=== PATIENT | male | born 1960 | race African-American/Black ===

== ENCOUNTER 2018-08-13 02:20 | Emergency (ER) | payer MEDICAID ==
[~2018-08-13] VITALS: Ht 172.7 cm; Wt 84.0 kg
[~2018-08-13 02:20] MED LIST: OXYCODONE
[2018-08-13 02:22] VITALS: BP 122/97
== END 2018-08-13 09:18 | disposition left against medical advice (07) ==
LOC: ER 02:20
DX: Z53.21 Procedure and treatment not carried out due to patient leaving prior to being seen by health care provider (principal)

== ENCOUNTER 2018-12-11 01:39 | Inpatient (IN) | payer MEDICAID, OTHER ==
[~2018-12-11] VITALS: Ht 175.3 cm; Wt 81.6 kg
[2018-12-11] MEDS ORDERED: ASPIRIN 81MG TABLET PO ONE (02:15)
[2018-12-11 03:18] LABS: BASOPHILS % 0.4 % (0.0-2.0); EOSINOPHILS % 0.3 % (0.0-5.0); HEMATOCRIT. 45.9 % (42.0-52.0); HEMOGLOBIN. 15.7 g/dL (14.0-18.0); LYMPHOCYTES % 21.3 % (20.0-50.0); MEAN CORPUSCULAR HEMOGLOBIN 30.6 pg (28.0-32.0); MEAN CORPUSCULAR VOLUME 89.6 fL (80.0-94.0); MEAN PLATELET VOLUME 8.8 fl (7.4-10.4); MONOCYTES % 11.1 % (2.0-8.0); NEUTROPHILS % 66.9 % (40.0-76.0); PLATELET 176 x1000/uL (130-400); RED BLOOD CELL COUNT 5.12 mill/uL (4.7-6.1); RED CELL DISTRIBUTION WIDTH 14.5 % (11.6-14.6)
[2018-12-11 03:55] LABS: CHLORIDE 102 mEq/L (98-107)
[2018-12-11 03:59] LABS: ETHANOL BLOOD < 10 mg/dL
[2018-12-11] MEDS ORDERED: ONDANSETRON HCL 4MG/2ML INJ IV ONE (04:00)
[2018-12-11] MEDS: DEXT 5%/0.45% NACL 1000ML 1,000 ML IV SCH ×3 (07:54→21:47)
[2018-12-11] MEDS ORDERED: ACETAMINOPHEN 650MG SUPP PR PRN (08:00)
[2018-12-11] MEDS ORDERED: DIPHENHYDRAMINE 50MG/ML VIAL IV PRN (08:00)
[2018-12-11] MEDS ORDERED: LORAZEPAM 2MG/ML CPJ IV PRN (08:00)
[2018-12-11] MEDS ORDERED: ONDANSETRON HCL 4MG/2ML INJ IV PRN (08:00)
[2018-12-11] MEDS ORDERED: IPRATROPIUM/ALBUTEROL 0.5-3(2.5)MG/3ML NEB HHN PRN (08:00)
[2018-12-11] MEDS ORDERED: NITROGLYCERIN 0.4MG TABLET SL SL PRN (09:00)
[2018-12-11 09:31] VITALS: BP 129/84
[2018-12-11] MEDS ORDERED: AMLO2.5T45 MT (09:45)
[2018-12-11] MEDS ORDERED: LOSA25TA26 MT (09:45)
[2018-12-11] MEDS ORDERED: BICT1TAB PO (09:45)
[2018-12-11] MEDS ORDERED: ATEN100T PO (09:45)
[2018-12-11] MEDS: PANTOPRAZOLE SODIUM 40 MG/VIAL IV SCH (10:06)
[2018-12-11] MEDS: ENOXAPARIN 30MG/0.3ML SYR SUBCUT SCH (10:07)
[2018-12-11 12:00] VITALS: BP 122/89
[2018-12-11 16:00] VITALS: BP 106/72
[2018-12-11] MEDS ORDERED: HYDRALAZINE 20MG/ML VIAL IV PRN (16:15)
[2018-12-11] MEDS ORDERED: HYDRALAZINE 10 MG in SODIUM CHLORIDE 0.9% 49.5 ML IV PRN (16:15)
[2018-12-11 16:59] LABS: CLARITY URINE CLOUDY (CLEAR); COLOR URINE DARK YELLOW (YELLOW); KETONES URINE TRACE (NEGATIVE); LEUKOCYTE ESTERASE URINE NEGATIVE (NEGATIVE); NITRITE URINE NEGATIVE (NEGATIVE); OCCULT BLOOD URINE 2+ (NEGATIVE); PROTEIN URINE 2+ (NEGATIVE); SPECIFIC GRAVITY URINE 1.024 (1.005-1.030)
[2018-12-11 17:15] LABS: *COCAINE SCREEN URINE NEGATIVE (NEGATIVE); CANNABINOID URINE SCREEN NEGATIVE (NEGATIVE); METHADONE URINE SCREEN NEGATIVE (NEGATIVE); OPIATES URINE SCREEN NEGATIVE (NEGATIVE); PHENCYCLIDINE URINE SCREEN NEGATIVE (NEGATIVE)
[2018-12-11 17:16] LABS: *AMPHETAMINES SCREEN URINE NEGATIVE (NEGATIVE); *BARBITURATES SCREEN URINE NEGATIVE (NEGATIVE); *BENZODIAZEPINES SCREEN URINE NEGATIVE (NEGATIVE)
[2018-12-11 20:00] VITALS: BP 122/88
[2018-12-12] VITALS: BP 133/92
[2018-12-12 04:00] VITALS: BP_SYST 98; BP_DIAS 52; BP_DIAS 72
[2018-12-12] MEDS ORDERED: LIDOCAINE 5% PATCH TOP PRN (07:00)
[2018-12-12 08:00] VITALS: BP 127/88
[2018-12-12] MEDS: DEXT 5%/0.45% NACL 1000ML 1,000 ML IV SCH ×2 (08:30→17:31)
[2018-12-12] MEDS: ENOXAPARIN 30MG/0.3ML SYR SUBCUT SCH (08:30)
[2018-12-12] MEDS: PANTOPRAZOLE SODIUM 40 MG/VIAL IV SCH (08:30)
[2018-12-12 12:00] VITALS: BP 136/86
[2018-12-12] MEDS: KETOROLAC 30MG/ML VIAL IV PRN ×2 (12:02→18:18)
[2018-12-12 12:43] LABS: CHLORIDE 108 mEq/L (98-107)
[2018-12-12 16:00] VITALS: BP 124/89
[2018-12-12 16:42] LABS: BASOPHILS % 0.3 % (0.0-2.0); EOSINOPHILS % 0.8 % (0.0-5.0); HEMATOCRIT. 46.6 % (42.0-52.0); HEMOGLOBIN. 15.7 g/dL (14.0-18.0); LYMPHOCYTES % 36.6 % (20.0-50.0); MEAN CORPUSCULAR HEMOGLOBIN 30.7 pg (28.0-32.0); MEAN PLATELET VOLUME 9.2 fl (7.4-10.4); MONOCYTES % 12.1 % (2.0-8.0); NEUTROPHILS % 50.2 % (40.0-76.0); PLATELET 159 x1000/uL (130-400); RED BLOOD CELL COUNT 5.12 mill/uL (4.7-6.1); RED CELL DISTRIBUTION WIDTH 14.7 % (11.6-14.6)
[2018-12-12 20:00] VITALS: BP 118/85
[2018-12-12] MEDS ORDERED: KETOROLAC 15MG/ML VIAL IV PRN (21:30)
[2018-12-12] MEDS ORDERED: ACETAMINOPHEN 325MG TABLET PO PRN (22:30)
[2018-12-13] VITALS: BP 126/88
[2018-12-13 04:00] VITALS: BP 101/84
[2018-12-13 08:00] VITALS: BP 133/75
[2018-12-13] MEDS: DEXT 5%/0.45% NACL 1000ML 1,000 ML IV SCH (08:10)
[2018-12-13] MEDS ORDERED: FAMOTIDINE 20MG/2ML VIAL IV SCH (09:00)
[2018-12-13] MEDS ORDERED: ENOXAPARIN 40MG/0.4ML SYR SUBCUT SCH (09:00)
[2018-12-13 12:00] VITALS: BP 132/89
[2018-12-13 14:49] VITALS: BP 132/89
== END 2018-12-13 15:10 | disposition home or self-care (01) | DRG 247 ==
LOC: ER 01:39 → 6EST 04:44 → EDBEDREQ 04:48 → EDBEDREQTM 04:48 → ENRESERV 07:16
PROVIDERS: ADMIT Internal Medicine; ATTEND Internal Medicine
DX: K56.609 Unspecified intestinal obstruction, unspecified as to partial versus complete obstruction (principal); N17.9 Acute kidney failure, unspecified; E83.51 Hypocalcemia; E87.1 Hypo-osmolality and hyponatremia; F17.210 Nicotine dependence, cigarettes, uncomplicated; I10 Essential (primary) hypertension; Z96.659 Presence of unspecified artificial knee joint; M19.90 Unspecified osteoarthritis, unspecified site; Z88.5 Allergy status to narcotic agent
CPT/HCPCS: 36415; 71045; 74018; 74176; 80305; 80320; 81003; 83036; 83880; 84484; 93005; 93970; 99291; C9113; J1650; J1885; J2405; J3490; G0480